=== PATIENT | female | born 1975 | race Caucasian/White ===

== ENCOUNTER 2020-12-08 21:28 | Emergency (ER) | payer OTHER ==
[~2020-12-08 21:28] MED LIST: ADDERALL 10 MG10 MG PO; ADDERALL XR 2525 MG PO; COZAAR100 MG PO; DESYREL50 MG PO; DULOXETINE HCL60 MG PO; IBUPROFEN800 MG PO; METFORMIN HCL500 MG PO; NORETHINDRONE0.35 MG PO; PERCOCET 5-3251 EACH PO; ROPINIROLE HC0.25 MG PO; VITAMIN D325 MC2 PO; VOLTAREN **OUT75 MG PO
[2020-12-08 22:40] LABS: BASOPHIL 0.2 % (0-2); HGB 14.8 g/dl (12.5-16.0); LYMPHOCYTE 34.4 % (15-48); MCH 30.9 pg (25.0-31.0); MCHC 33.6 g/dL (32.0-36.0); MCV 91.9 fL (78.0-100.0); MONOCYTE 6.3 % (0-12); NEUTROPHIL 57.8 % (41-80); NRBC 0; PLT 361 K/uL (150-400); RBC 4.79 M/uL (4.20-5.40); RDW 13.6 % (11.5-14.0); WBC 8.8 K/uL (4.0-10.5)
[2020-12-08 22:44] LABS: BILIRUBIN NEGATIVE (NEGATIVE); BLOOD 3+ Ery/uL (NEGATIVE); CLARITY CLEAR (CLEAR); COLOR YELLOW (YELLOW); GLUCOSE (U) NORMAL (NORMAL); LEUKOCYTES TRACE Leu/uL (NEGATIVE); NITRITE NEGATIVE (NEGATIVE); PROTEIN 1+ mg/dL (NEGATIVE); SPECIFIC GRAVITY >=1.030 (1.001-1.030); UROBILINOGEN 0.2 mg/dL (0.2-1.0); pH 5.5 (5.0-9.0)
[2020-12-08 22:45] LABS: HCG (URINE) SCREEN NEGATIVE (NEGATIVE)
[2020-12-08 22:48] LABS: ALBUMIN 3.8 g/dL (3.4-5.0); BILIRUBIN - TOTAL 0.6 mg/dL (0.2-1.0); BUN/CREAT RATIO (CALC) 17.6 RATIO; CREATININE 0.91 mg/dL (0.51-0.95); GLOBULIN (CALCULATION) 4.1 g/dL; POTASSIUM 4.4 mmol/L (3.5-5.1); TOTAL PROTEIN 7.9 g/dL (6.4-8.2)
[2020-12-08 22:51] LABS: BACTERIA 1+; CALCIUM OXALATE CRYSTALS TRACE; SQUAMOUS EPITHELIAL CELLS >50
[2020-12-08] MEDS ORDERED: FLOMAX 0.4 MG0.4 MG PO (23:31)
[2020-12-08] MEDS ORDERED: ONDANSETRON ODT4 MG PO (23:31)
[2020-12-08] MEDS ORDERED: CEPHALEXIN500 M1 PO (23:31)
[2020-12-08] MEDS ORDERED: PERCOCET 5-3251 EACH PO (23:31)
== END 2020-12-09 00:20 | disposition home or self-care (01) ==
LOC: FER 21:28
PROVIDERS: Student in an Organized Health Care Education/Training Program
DX: N20.0 Calculus of kidney (principal); N39.0 Urinary tract infection, site not specified; I10 Essential (primary) hypertension; F17.210 Nicotine dependence, cigarettes, uncomplicated; Z87.442 Personal history of urinary calculi
CPT/HCPCS: 36415; 80053; 81001; 84703; 85025; J0696; J1885; J2405; J3010

== ENCOUNTER 2020-12-21 17:38 | Emergency (ER) | payer OTHER ==
[~2020-12-21 17:38] MED LIST changes: +CEPHALEXIN500 M1 PO; +FLOMAX 0.4 MG0.4 MG PO; +ONDANSETRON ODT4 MG PO
[2020-12-21 18:32] LABS: BASOPHIL 0.4 % (0-2); EOSINOPHIL 2.3 % (0-5); HCT 40.4 % (37.0-47.0); HGB 13.5 g/dl (12.5-16.0); LYMPHOCYTE 27.4 % (15-48); MCH 30.5 pg (25.0-31.0); MCHC 33.4 g/dL (32.0-36.0); MCV 91.4 fL (78.0-100.0); MONOCYTE 6.9 % (0-12); MPV 9.4 fL (6.0-9.5); NRBC 0; PLT 332 K/uL (150-400); RBC 4.42 M/uL (4.20-5.40); RDW 13.7 % (11.5-14.0); WBC 8.3 K/uL (4.0-10.5)
[2020-12-21 18:32] LABS: BILIRUBIN NEGATIVE (NEGATIVE); BLOOD 3+ Ery/uL (NEGATIVE); CLARITY HAZY (CLEAR); COLOR YELLOW (YELLOW); GLUCOSE (U) NORMAL (NORMAL); LEUKOCYTES 1+ Leu/uL (NEGATIVE); NITRITE NEGATIVE (NEGATIVE); PROTEIN 3+ mg/dL (NEGATIVE); SPECIFIC GRAVITY >=1.030 (1.001-1.030); UROBILINOGEN 0.2 mg/dL (0.2-1.0)
[2020-12-21 18:40] LABS: BACTERIA TRACE; CALCIUM OXALATE CRYSTALS MODERATE; URINARY RBC TNTC
[2020-12-21 18:46] LABS: ALBUMIN 3.4 g/dL (3.4-5.0); BILIRUBIN - TOTAL 0.2 mg/dL (0.2-1.0); BUN/CREAT RATIO (CALC) 20.9 RATIO; CREATININE 0.91 mg/dL (0.51-0.95); GLOBULIN (CALCULATION) 3.9 g/dL; POTASSIUM 4.1 mmol/L (3.5-5.1); TOTAL PROTEIN 7.3 g/dL (6.4-8.2)
[2020-12-21] MEDS ORDERED: FLOMAX 0.4 MG0.4 MG PO (23:29)
[2020-12-21] MEDS ORDERED: PERCOCET 5-3251 EACH PO (23:29)
== END 2020-12-21 23:50 | disposition home or self-care (01) ==
LOC: FER 17:38
PROVIDERS: Emergency Medicine
DX: N20.0 Calculus of kidney (principal); F17.210 Nicotine dependence, cigarettes, uncomplicated; Z87.442 Personal history of urinary calculi
CPT/HCPCS: 36415; 74018; 80053; 81001; 82150; 83690; 85025; J1885; J2270; J2405; J3010; J7030